=== PATIENT | female | born 1965 | race African-American/Black ===

== ENCOUNTER 2018-02-19 14:47 | Emergency (ER) | payer SELFPAY ==
[2018-02-19] MEDS ORDERED: Clindamycin 150 MG CAP ONE (15:59)
[2018-02-19] MEDS ORDERED: HYDROcodone/Acetaminophen 5/325 mg Tablet ONE (15:59)
[2018-02-19] MEDS ORDERED: Dexamethasone 4 mg/ml Vial ONE (16:00)
[2018-02-19 16:07] LABS: #Basophils 0.1 thou/uL (0.0-0.2); #Eosinphils 0.2 thou/uL (0.0-0.7); #Lymphocytes 2.4 thou/uL (1.20-3.40); #Monocytes 0.6 thou/uL (0.11-0.59); #Neutrophils 6.3 thou/uL (1.40-6.50); %Basophils 0.9 % (0.0-1.0); %Eosinophils 1.9 % (0.0-10.0); %Lymphocytes 25.1 % (21.0-51.0); %Monocytes 5.8 % (0.0-10.0); %Neutrophils 66.3 % (42.0-75.0); Hemoglobin 12.9 g/dL (12.0-16.0); Mean Corpuscular HGB CONC 33.1 g/dL (32.0-36.0); Mean Corpuscular Hemoglobin 31.5 pg (27.0-31.0); Mean Corpuscular Volume 95.3 fL (78.0-98.0); Mean Platelet Volume 7.9 fL (7.4-10.4); Platelet Count 209 thou/uL (130-400); RBC Distribution Width 13.1 % (11.5-14.5); White Blood Cell (WBC) Count 9.4 thou/uL (4.8-10.8)
== END 2018-02-19 16:35 | disposition home or self-care (01) ==
LOC: ERS 14:47
DX: K04.7 Periapical abscess without sinus (principal); I10 Essential (primary) hypertension; F17.210 Nicotine dependence, cigarettes, uncomplicated
CPT/HCPCS: 36415; 85025; 99283; J1100

== ENCOUNTER 2018-02-21 13:28 | Emergency (ER) | payer SELFPAY ==
[2018-02-21 14:21] LABS: #Basophils 0.1 thou/uL (0.0-0.2); #Eosinphils 0.2 thou/uL (0.0-0.7); #Lymphocytes 2.8 thou/uL (1.20-3.40); #Monocytes 0.5 thou/uL (0.11-0.59); %Basophils 1.2 % (0.0-1.0); %Eosinophils 1.6 % (0.0-10.0); %Lymphocytes 29.3 % (21.0-51.0); %Monocytes 5.3 % (0.0-10.0); %Neutrophils 62.5 % (42.0-75.0); Hemoglobin 15.3 g/dL (12.0-16.0); Mean Corpuscular HGB CONC 33.9 g/dL (32.0-36.0); Mean Corpuscular Volume 94.4 fL (78.0-98.0); Mean Platelet Volume 8.4 fL (7.4-10.4); Platelet Count 292 thou/uL (130-400); RBC Distribution Width 13.5 % (11.5-14.5); Red Blood Cell (RBC) Count 4.77 mill/uL (4.20-5.40); White Blood Cell (WBC) Count 9.6 thou/uL (4.8-10.8)
[2018-02-21] MEDS ORDERED: cefTRIAXone\\ROCEPHIN 1 GM VIAL ONE (14:27)
[2018-02-21] MEDS ORDERED: Ondansetron HCl/PF 4 MG/2 ML Vial ONE (14:27)
[2018-02-21] MEDS ORDERED: Dexamethasone 4 mg/ml Vial ONE (14:27)
[2018-02-21 14:34] LABS: BHCG - Serum Negative (NEGATIVE); Pregs Control Background? CLEAR/WHITE (CLR/WHITE); Pregs Control Bar Appear? YES (CONTROL BAR)
[2018-02-21] MEDS ORDERED: cloNIDine 0.1 MG TAB ONE (14:37)
[2018-02-21 14:47] LABS: CKMB 0.6 ng/mL (0-6.6); Troponin I Less than 0.010 ng/mL (< 0.028)
--- NOTE | 2018-02-21 14:58 | RAD ---
CHEST ONE VIEW: HISTORY: Chest pain. Dyspnea. COMPARISON: 06/24/2011 FINDINGS: The cardiac silhouette is magnified by projection. The pulmonary vasculature is at the upper limits of normal. The mediastinum is midline. No lobar consolidation or evidence of pneumothorax. IMPRESSION: No active cardiopulmonary abnormalities demonstrated. POS: [facility]
--- NOTE | 2018-02-21 15:08 | CT ---
POST CONTRAST SOFT TISSUE NECK CT: HISTORY: Evaluate for soft tissue neck abscess. COMPARISON: None. TECHNIQUE: Post contrast neck CT is performed in the axial plane. Reformatted images are submitted for interpre tation. FINDINGS: The visualized brain parenchyma is unremarkable. Bilateral ocular lenses are appropriately located. Both globes are intact. Retrobulbar fat is preserved. Symmetric attenuation of the optic nerves and ocular rectus muscles. Adequate aeration of the paranasal sinuses and mastoid air cells, with the exception of minimal mucos al disease involving the right maxillary sinus. There is evidence of periodontal disease involving t he molar teeth of the left and right maxilla. No obvious masses in the anterior oral cavity. Evaluation is limited by dental amalgam artifact. Mi dline fatty raphe of the tongue is preserved. In the right tonsillar pillar, there is a previously enhancing, centrally hypodense lesion, measuring 1.9 x 2.2 cm. There is mild mucosal enhancement and mild effacement of the aerodigestive tract at t his level. There is also enhancement involving the left tonsillar pillar, without associated obvious abscess. There is thickening at the epiglottis. Pre-epiglottic fat is still preserved. The suprag lottic, glottic, and subglottic larynx are unremarkable. Symmetric attenuation of the parotid and submandibular glands. Symmetric attenuation of the sternocleidomastoid muscles. Scattered soft tissue neck lymph nodes. There is a conglomeration of enlarged right level II lymph n odes, measuring 1.7 x 1.1 cm. Enlarged left level II lymph node, measuring 1.4 x 0.8 cm. The lung apices are unremarkable. There is an incompletely evaluated hypodensity of the anterior med iastinum, measuring 3.1 x 2.5 cm, with an attenuation coefficient of 33 Hounsfield units. Cervical spine vertebral body heights are maintained. No fractures. IMPRESSION: 1. Peritonsillar abscess involving the right tonsillar pillar/right palatine tonsil. 2. Enlarged bilateral level II lymph nodes, likely reactive. 3. Incompletely evaluated hypodensity in the anterior mediastinum. The results of the study were discussed with Dr. Sams on 02/21/2018 at 2:44 p.m. CODE CR POS: [facility]
== END 2018-02-21 15:14 | disposition home or self-care (01) ==
LOC: ERS 13:28
DX: J36 Peritonsillar abscess (principal); J98.59 Other diseases of mediastinum, not elsewhere classified; F41.9 Anxiety disorder, unspecified; I10 Essential (primary) hypertension; F17.210 Nicotine dependence, cigarettes, uncomplicated; Z79.899 Other long term (current) drug therapy
CPT/HCPCS: 70491; 71045; 82553; 84484; 84703; 85025; 93005; 96365; 96375; J0696; J1100; J2405

== ENCOUNTER 2018-05-01 11:27 | Emergency (ER) | payer SELFPAY ==
[2018-05-01] MEDS ORDERED: Ibuprofen 800 MG TAB ONE (12:20)
--- NOTE | 2018-05-01 15:29 | RAD ---
PA AND LATERAL VIEWS CHEST: HISTORY: Cough and congestion. FINDINGS: The heart size is normal. The lungs are well expanded without focal areas of consolidation, pneumoth oraces or pleural effusions. No acute off abnormalities are seen. IMPRESSION: No radiographic evidence of acute cardiopulmonary process. POS: [facility]
== END 2018-05-01 14:10 | disposition home or self-care (01) ==
LOC: ERS 11:27
DX: J06.9 Acute upper respiratory infection, unspecified (principal); I10 Essential (primary) hypertension; F41.9 Anxiety disorder, unspecified; F17.210 Nicotine dependence, cigarettes, uncomplicated; Z79.899 Other long term (current) drug therapy
CPT/HCPCS: 71046

== ENCOUNTER 2018-05-28 13:10 | Emergency (ER) | payer SELFPAY ==
[2018-05-28] MEDS ORDERED: Metoclopramide HCl 10 MG/2 ML VIAL ONE (14:05)
[2018-05-28] MEDS ORDERED: Acetaminophen 500 MG TAB ONE (14:05)
[2018-05-28 15:00] LABS: #Basophils 0.1 thou/uL (0.0-0.2); #Eosinphils 0.1 thou/uL (0.0-0.7); #Lymphocytes 1.4 thou/uL (1.20-3.40); #Monocytes 0.6 thou/uL (0.11-0.59); #Neutrophils 4.7 thou/uL (1.40-6.50); %Eosinophils 1.2 % (0.0-10.0); %Lymphocytes 20.7 % (21.0-51.0); %Monocytes 8.2 % (0.0-10.0); %Neutrophils 68.9 % (42.0-75.0); Hemoglobin 15.2 g/dL (12.0-16.0); Mean Corpuscular HGB CONC 33.2 g/dL (32.0-36.0); Mean Corpuscular Hemoglobin 31.1 pg (27.0-31.0); Mean Corpuscular Volume 93.7 fL (78.0-98.0); Mean Platelet Volume 7.5 fL (7.4-10.4); Platelet Count 252 thou/uL (130-400); RBC Distribution Width 13.3 % (11.5-14.5); Red Blood Cell (RBC) Count 4.88 mill/uL (4.20-5.40); White Blood Cell (WBC) Count 6.8 thou/uL (4.8-10.8)
[2018-05-28 15:21] LABS: ALT (SGPT) 25 U/L (8-55); AST (SGOT) 29 U/L (5-34); Albumin 3.9 g/dL (3.5-5.0); Alkaline Phosphatase 103 U/L (40-150); Anion Gap 14 mmol/L (10-20); BUN (Urea Nitrogen) 12 mg/dL (7.0-18.7); Bilirubin, Total 0.2 mg/dL (0.2-1.2); Calc. Creatinine Clearance 0 mL/min (70-130); Calcium 9.5 mg/dL (7.8-10.44); Carbon Dioxide 19 mmol/L (22-29); Chloride 103 mmol/L (98-107); Estimated GFR-MDRD 49; Globulin 4.1 g/dL (2.4-3.5); Glucose 128 mg/dL (70-105); Potassium 4.3 mmol/L (3.5-5.1); Sodium 132 mmol/L (136-145)
[2018-05-28] MEDS ORDERED: Ketorolac Tromethamine 30 MG/ML VIAL ONE (15:21)
--- NOTE | 2018-05-28 15:21 | CT ---
CT BRAIN NONCONTRAST: HISTORY: A 52-year-old female with headache. FINDINGS: There is no midline shift or any other mass effect. There is no evidence of acute intracranial hemor rhage, large cortical infarct, obstructive hydrocephalus, or extraaxial fluid collection. The calvar ium is intact. IMPRESSION: No acute intracranial findings. jn [] POS: [facility]
== END 2018-05-28 15:56 | disposition home or self-care (01) ==
LOC: ERS 13:10
DX: J01.90 Acute sinusitis, unspecified (principal); F41.9 Anxiety disorder, unspecified; F17.210 Nicotine dependence, cigarettes, uncomplicated; I10 Essential (primary) hypertension; Z79.899 Other long term (current) drug therapy
CPT/HCPCS: 36416; 70450; 80053; 85025; 96365; 96366; 96375; J1885; J2765

== ENCOUNTER 2018-05-30 11:28 | Emergency (ER) | payer SELFPAY ==
[2018-05-30] MEDS ORDERED: Acetaminophen 500 MG TAB ONE (12:00)
[2018-05-30] MEDS ORDERED: cefTRIAXone\\ROCEPHIN 2 GM VIAL ONE ×2 (12:00→14:37)
[2018-05-30] MEDS ORDERED: cefTRIAXone\\ROCEPHIN 2 GM in Sodium Chloride 0.9% 100 ML IVPB SCH (12:45)
[2018-05-30 12:53] LABS: ALT (SGPT) 69 U/L (8-55); AST (SGOT) 71 U/L (5-34); Albumin 4.1 g/dL (3.5-5.0); Alkaline Phosphatase 117 U/L (40-150); Anion Gap 12 mmol/L (10-20); BUN (Urea Nitrogen) 10 mg/dL (7.0-18.7); Bilirubin, Total 0.4 mg/dL (0.2-1.2); Calc. Creatinine Clearance 0 mL/min (70-130); Calcium 9.6 mg/dL (7.8-10.44); Carbon Dioxide 24 mmol/L (22-29); Chloride 98 mmol/L (98-107); Estimated GFR-MDRD 53; Globulin 4.1 g/dL (2.4-3.5); Glucose 131 mg/dL (70-105); Potassium 3.7 mmol/L (3.5-5.1); Protein, Total 8.2 g/dL (6.0-8.3); Sodium 130 mmol/L (136-145)
[2018-05-30 13:10] LABS: #Basophils 0.1 thou/uL (0.0-0.2); #Lymphocytes 1.2 thou/uL (1.20-3.40); #Monocytes 0.5 thou/uL (0.11-0.59); #Neutrophils 4.9 thou/uL (1.40-6.50); %Basophils 0.9 % (0.0-1.0); %Eosinophils 0.2 % (0.0-10.0); %Lymphocytes 17.9 % (21.0-51.0); %Monocytes 6.9 % (0.0-10.0); Hemoglobin 14.7 g/dL (12.0-16.0); Mean Corpuscular HGB CONC 33.4 g/dL (32.0-36.0); Mean Corpuscular Hemoglobin 30.2 pg (27.0-31.0); Mean Corpuscular Volume 90.4 fL (78.0-98.0); Platelet Count 217 thou/uL (130-400); RBC Distribution Width 13.4 % (11.5-14.5); Red Blood Cell (RBC) Count 4.87 mill/uL (4.20-5.40); White Blood Cell (WBC) Count 6.7 thou/uL (4.8-10.8)
[2018-05-30] MEDS ORDERED: Lidocaine 1% (PF) 30 ML VIAL ONE (13:40)
[2018-05-30 14:48] LABS: CSF Source CSF; Clarity Clear (Clear); RBC Count - Manual 1 /cumm (None Seen); Tube # 4; WBC/NonHematics Count - Manual 1 /cumm (0-5)
[2018-05-30 14:53] LABS: Color Of CSF Supernatant COLORLESS (Colorless); Unspun CSF Color COLORLESS (Colorless)
[2018-05-30 14:54] LABS: Tube # 2
[2018-05-30 15:08] LABS: CSF, Glucose 74 mg/dl (40-70); CSF, Protein 31 mg/dL (15-40)
== END 2018-05-30 15:21 | disposition home or self-care (01) ==
LOC: ERS 11:28
DX: B34.9 Viral infection, unspecified (principal); I10 Essential (primary) hypertension; F41.9 Anxiety disorder, unspecified; F17.210 Nicotine dependence, cigarettes, uncomplicated; Z79.899 Other long term (current) drug therapy
CPT/HCPCS: 62270; 80053; 82945; 83605; 84157; 85025; 87070; 87205; 87804; 89051; 96361; 96365; J0696; J2001

== ENCOUNTER 2018-06-04 08:57 | Inpatient (IN) | payer SELFPAY ==
[2018-06-04 09:43] LABS: #Basophils 0.1 thou/uL (0.0-0.2); #Eosinphils 0.1 thou/uL (0.0-0.7); #Lymphocytes 1.4 thou/uL (1.20-3.40); #Monocytes 0.5 thou/uL (0.11-0.59); #Neutrophils 4.4 thou/uL (1.40-6.50); %Basophils 0.8 % (0.0-1.0); %Eosinophils 1.9 % (0.0-10.0); %Lymphocytes 21.2 % (21.0-51.0); %Monocytes 7.2 % (0.0-10.0); %Neutrophils 68.9 % (42.0-75.0); Hemoglobin 14.4 g/dL (12.0-16.0); Mean Corpuscular HGB CONC 33.3 g/dL (32.0-36.0); Mean Corpuscular Hemoglobin 30.3 pg (27.0-31.0); Mean Platelet Volume 8.3 fL (7.4-10.4); Platelet Count 228 thou/uL (130-400); RBC Distribution Width 13.6 % (11.5-14.5); Red Blood Cell (RBC) Count 4.73 mill/uL (4.20-5.40); White Blood Cell (WBC) Count 6.4 thou/uL (4.8-10.8)
[2018-06-04 10:05] LABS: ALT (SGPT) 270 U/L (8-55); AST (SGOT) 193 U/L (5-34); Albumin 3.7 g/dL (3.5-5.0); Alkaline Phosphatase 279 U/L (40-150); Anion Gap 16 mmol/L (10-20); BUN (Urea Nitrogen) 13 mg/dL (7.0-18.7); Calc. Creatinine Clearance 0 mL/min (70-130); Calcium 9.5 mg/dL (7.8-10.44); Carbon Dioxide 25 mmol/L (22-29); Chloride 94 mmol/L (98-107); Estimated GFR-MDRD 52; Globulin 4.2 g/dL (2.4-3.5); Glucose 134 mg/dL (70-105); Lipase 9 U/L (8-78); Potassium 3.6 mmol/L (3.5-5.1); Protein, Total 7.9 g/dL (6.0-8.3); Sodium 131 mmol/L (136-145)
[2018-06-04 10:48] LABS: Bilirubin Moderate (Negative); Blood, Urine Negative (Negative); Clarity CLOUDY (Clear); Glucose, Urine (Dipstick) Negative (Negative); Leukocyte Small (Negative); Nitrite Positive (Negative); Protein, Urine (Dipstick) 100 mg/dL (Neg-Trace); Specific Gravity, Urine 1.025 (1.002-1.036); pH, Urine 5.5 (5.0-9.0)
[2018-06-04 10:51] LABS: Bacteria/HPF None Seen HPF (None Seen)
[2018-06-04 10:52] LABS: Pathc Cast-AUWi Flag 3.19 (0-2.49)
[2018-06-04 10:53] LABS: Hyaline Casts/LPF 4-6 HYALINE CAST LPF (0-3 Hyaline); Manual Microscopic Reviewed? No Path Casts Seen; Renal Epithelial None Seen HPF (0-3); Transitional Epithelial NONE SEEN HPF (0-3)
--- NOTE | 2018-06-04 11:00 | ULT ---
RIGHT UPPER QUADRANT ULTRASOUND: Date: 06/04/18 HISTORY: Right upper quadrant pain. FINDINGS: The liver, gallbladder, right kidney, and visualized portions of the pancreas are normal. No free flu id is seen in Morison's pouch. Common duct measures 3.0 mm in diameter. IMPRESSION: No significant abnormalities are identified. POS: [facility]
[2018-06-04] MEDS ORDERED: Ondansetron PF 4 MG/2 ML Vial ONE ×2 (11:45→11:46)
[2018-06-04] MEDS ORDERED: Sodium Chloride 0.65% Nasal 44 ML BOT EA NARE PRN (14:00)
[2018-06-04] MEDS ORDERED: Bisacodyl 5 MG TAB PO PRN (14:00)
[2018-06-04] MEDS ORDERED: Calcium Carbonate 500 MG ChewTAB PO PRN (14:00)
[2018-06-04] MEDS ORDERED: Ondansetron PF 4 MG/2 ML Vial IVP PRN (14:00)
[2018-06-04] MEDS ORDERED: Ondansetron ODT 4 MG TAB PO PRN (14:00)
[2018-06-04] MEDS ORDERED: Loperamide HCl 2 MG CAP PO PRN (14:00)
[2018-06-04] MEDS ORDERED: Artificial Tear Sol 15 ML BOT EA EYE PRN (14:00)
[2018-06-04] MEDS ORDERED: Bisacodyl 10 MG SUPP PR PRN (14:00)
[2018-06-04] MEDS ORDERED: Senokot S 8.6-50 MG TAB PO PRN (14:00)
[2018-06-04] MEDS ORDERED: Eucerin (Mineral Oil/Petrolatum,White) 30 gm Jar TOP PRN (14:00)
[2018-06-04] MEDS ORDERED: hydrALAZINE 20 MG/ML VIAL SLOW IVP PRN (14:00)
[2018-06-04] MEDS ORDERED: Cepastat Lozenges 1 LOZ PO PRN (14:00)
[2018-06-04] MEDS ORDERED: Diabetic Tussin 200 MG/10 ML UDCUP PO PRN (14:00)
[2018-06-04 14:04] VITALS: BMI 29.9
--- NOTE | 2018-06-04 14:16 | HP ---
PRIMARY CARE PHYSICIAN: [facility]. REASON FOR ADMISSION: UTI and abnormal LFT. HISTORY OF PRESENT ILLNESS: A 52-year-old female with past medical history of hypertension, who presented to emergency room with multiple complaints for last two weeks. The patient is experiencing poor appetite and insomnia. She was also feeling fatigued, tiredness. For last one week, she was experiencing intermittent dysuria. She also noticed hematuria. She was having subjective fever at home. She denies any cough. She denies any chest pain or palpitation. She reports insomnia. The patient was also feeling off-balance. She was also feeling intermittently disoriented. She was overall not feeling good, and that is why she came to emergency room for evaluation. In the emergency room today, abdominal ultrasound was done for her abnormal LFT, which was unremarkable. Routine blood test showed hyponatremia, mild dehydration, and abnormal LFT. Her urinalysis is suggestive of UTI. In the emergency room, the patient is getting CT chest, abdomen, and pelvis. The patient is being admitted for further evaluation and treatment. PAST MEDICAL HISTORY: Hypertension, history of tobacco abuse, and history of alcohol abuse. PAST SURGICAL HISTORY: Ovarian cyst removed in 1996, and tubal ligation. PAST PSYCHIATRIC HISTORY: Anxiety and depression. SOCIAL HISTORY: The patient has previous history of drug abuse. She reports that she quit everything for last several months. She also recently stopped smoking as well as abusing alcohol. Previously, she abused marijuana as well as cocaine. FAMILY HISTORY: No family history of coronary artery disease, stroke, or cancer. REVIEW OF SYSTEMS: CONSTITUTIONAL: Negative for weight loss or gain, ability to conduct usual activities. SKIN: Negative for rash, itching. EYES: Negative for double vision, pain. ENT/MOUTH: Negative for nose bleeding, neck stiffness, pain, tenderness. CARDIOVASCULAR: Negative for palpitations, dyspnea on exertion, orthopnea. RESPIRATORY: Negative for shortness of breath, wheezing, cough, hemoptysis, fever or night sweats. GASTROINTESTINAL: Negative for poor appetite, abdominal pain, heartburn, nausea, vomiting, constipation, or diarrhea. GENITOURINARY: Negative for urgency, frequency, dysuria, nocturia. MUSCULOSKELETAL: Negative for pain, swelling. NEUROLOGIC/PSYCHIATRIC: Negative for anxiety, depression. ALLERGY/IMMUNOLOGIC: Negative for skin rash, bleeding tendency. Please see my HPI for pertinent positives and negatives. All other review of systems reviewed and negative except as mentioned in HPI. ALLERGIES: AUGMENTIN, BENADRYL, PSEUDOEPHEDRINE, AND TRAMADOL. CURRENT HOME MEDICATIONS: 1. Atenolol 50 mg daily. 2. Clonidine 0.2 mg at bedtime. 3. Hydrochlorothiazide 12.5 mg p.o. daily. EMERGENCY ROOM COURSE: The patient is given IV fluid and Zofran. FAMILY HISTORY: No strong family history of premature coronary artery disease, stroke, or cancer. PHYSICAL EXAMINATION: VITAL SIGNS: Currently, blood pressure 100/67, pulse 69, respiratory rate 18, temperature 98.8, and saturation 99% on room air. Weight 72.1 kg. GENERAL: The patient is currently alert and awake. No obvious acute distress. HEENT: Head; normocephalic and atraumatic. Eyes; pupils are round and reactive to light. Extraocular muscle intact. ENT; oropharynx within normal limits. Moist mucous membranes. No oral lesion. No pharyngeal erythema. No exudate. NECK: Supple. No JVD. No thyromegaly. No carotid bruit. LUNGS: Clear to auscultation without any rhonchi or rales. CARDIAC: S1 and S2, regular. No murmur elicited. No gallop. No rub. ABDOMEN: The patient does have lower abdominal suprapubic discomfort. Mild CVA tenderness noted. No distention. No peritoneal sign. No guarding. No rigidity. No Williamson sign. No obvious organomegaly noted. EXTREMITIES: No edema. Good distal pulsation. No calf tenderness. SKIN: No skin rash. HEMATOLOGICAL SYSTEM: No lymphadenopathy. PSYCHIATRIC: Normal affect. NEUROLOGIC: Nonfocal examination. SIGNIFICANT LABORATORY DATA: EKG showing sinus rhythm, within normal limit. Abdomen ultrasound, no acute process. CBC; WBC 6.4, hemoglobin 14.4, and platelet 228. BMP; sodium 131, potassium 3.6, chloride 94, carbon dioxide 25, BUN 13, creatinine 1.30, glucose 134, calcium 9.5. LFT; AST 193, ALT 270, alkaline phosphatase 279, albumin 3.7, lipase 9. Urinalysis suggestive of urinary tract infection. ASSESSMENT: 1. Urinary tract infection. 2. Abnormal liver function tests. 3. Dehydration. 4. Hyponatremia and hypochloremia. 5. History of hypertension. 6. Ex-smoker and ex-alcohol abuse. 7. Anxiety and depression. 8. Generalized weakness. PLAN: 1. Admission to medical floor. Send urine culture. Start IV fluid with NS at 100 mL/hour. Resume selected home medication. Symptomatic treatment. Repeat labs tomorrow. Check hepatitis profile. The patient is getting CT chest, abdomen, and pelvis in the emergency room to rule out any occult malignancy. 2. Deep venous thrombosis prophylaxis. Lovenox 40 mg subcu daily. 3. Gastrointestinal prophylaxis. Pepcid 20 mg p.o. b.i.d. CODE STATUS: The patient is full code. The patient does not have any surrogate decision maker. DISPOSITION PLAN: Based on clinical course. Healthy lifestyle measure discussed with the patient. The patient is given counseling to avoid smoking and alcohol abuse. Job ID: [id number]
[2018-06-04] MEDS: cefTRIAXone\\ROCEPHIN 1 GM in Sodium Chloride 0.9% 100 ML IVPB SCH (14:50)
[2018-06-04] MEDS: Sodium Chloride 0.9% 1,000 ML IV SCH ×2 (14:51→20:27)
--- NOTE | 2018-06-04 17:16 | CT ---
CT CHEST AND ABDOMEN AND PELVIS PERFORMED WITH INTRAVENOUS CONTRAST ENHANCEMENT: HISTORY: Patient with loss of appetite. It was stated that she has been told that she has a large mass in her chest and has a cough and difficulty breathing. COMPARISON: Recent chest x-ray from 05/01/2018. FINDINGS: CHEST: The lungs are clear of any infiltrative process. There is some minimal linear atelectasis or scar in the lung bases. No pulmonary nodule or pleural effusions. There is no significant hilar ad enopathy. There is an anterior mediastinal mass, which is well circumscribed and of fluid density, m ost likely representing a thymic cyst. The thoracic aorta is normal in caliber. The thyroid gland i s normal in appearance. No significant axillary adenopathy. ABDOMEN: The liver and spleen show no focal abnormalities. The liver measures approximately 18.6 cm in length. The pancreas and gallbladder regions are normal. The right and left adrenal glands and the right and left kidneys are normal in size. There is no sig nificant periaortic or mesenteric adenopathy. Some mild atherosclerotic changes of the aorta are not ed. PELVIS: The appendix is normal. There is no significant adenopathy, mass, or free fluid. Review of the osseous structures show no lytic or blastic bony change. IMPRESSION: 1. No acute findings of the chest, abdomen, or pelvis. 2. Cystic appearing lesion in the anterior mediastinum. 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 I do no t see any solid component. It still would probably be advisable to obtain a 3 to 6 month follow-up C T, to assess for stability. POS: [facility]
[2018-06-04] MEDS: Acetaminophen 325 MG TAB PO PRN (17:27)
[2018-06-05 06:49] LABS: #Basophils 0.1 thou/uL (0.0-0.2); #Eosinphils 0.1 thou/uL (0.0-0.7); #Lymphocytes 1.3 thou/uL (1.20-3.40); #Monocytes 0.6 thou/uL (0.11-0.59); #Neutrophils 3.8 thou/uL (1.40-6.50); %Basophils 0.9 % (0.0-1.0); %Eosinophils 1.8 % (0.0-10.0); %Monocytes 10.4 % (0.0-10.0); %Neutrophils 64.8 % (42.0-75.0); Hemoglobin 12.3 g/dL (12.0-16.0); Mean Corpuscular HGB CONC 33.2 g/dL (32.0-36.0); Mean Corpuscular Hemoglobin 30.2 pg (27.0-31.0); Mean Corpuscular Volume 90.9 fL (78.0-98.0); Mean Platelet Volume 8.1 fL (7.4-10.4); Platelet Count 233 thou/uL (130-400); RBC Distribution Width 13.5 % (11.5-14.5); Red Blood Cell (RBC) Count 4.09 mill/uL (4.20-5.40); White Blood Cell (WBC) Count 5.9 thou/uL (4.8-10.8)
[2018-06-05 07:10] LABS: ALT (SGPT) 230 U/L (8-55); AST (SGOT) 172 U/L (5-34); Albumin 3.1 g/dL (3.5-5.0); Alkaline Phosphatase 277 U/L (40-150); Anion Gap 11 mmol/L (10-20); BUN (Urea Nitrogen) 10 mg/dL (7.0-18.7); Bilirubin, Total 0.7 mg/dL (0.2-1.2); Calc. Creatinine Clearance 73 mL/min (70-130); Calcium 8.7 mg/dL (7.8-10.44); Carbon Dioxide 25 mmol/L (22-29); Chloride 101 mmol/L (98-107); Estimated GFR-MDRD 67; Globulin 3.6 g/dL (2.4-3.5); Glucose 131 mg/dL (70-105); Potassium 3.5 mmol/L (3.5-5.1); Protein, Total 6.7 g/dL (6.0-8.3); Sodium 133 mmol/L (136-145)
[2018-06-05 07:31] LABS: HBCM Index 0.05 S/CO (0-0.79); HBSAg Index 0.23 S/CO (0-0.99); Hep A IgM AB Non-Reactive (NonReactive); Hep A IgM S/CO 0.24 S/CO (0-0.79); Hep B Surf Ag Non-Reactive S/CO (NonReactive); Hep C IgG Ab Non-Reactive (NonReactive); Hep C Index 0.07 S/CO (0-0.79); Hepatitis B Core IgM Abs Non-Reactive (NonReactive); Thyroid Stimulating Hormone 1.4925 uIU/mL (0.35-4.94)
[2018-06-05] MEDS: Enoxaparin Sodium 40 MG/0.4 ML SYRINGE SC SCH (09:19)
[2018-06-05] MEDS: Famotidine 20 MG TAB PO SCH (09:19)
[2018-06-05] MEDS: Saccharomyces boulardii 250 MG CAP PO SCH (09:19)
[2018-06-05] MEDS: Sodium Chloride 0.9% 1,000 ML IV SCH ×2 (09:19→18:03)
--- NOTE | 2018-06-05 10:00 | PDOC.PN ---
- Subjective Encounter Start Date: 06/05/18 Encounter Start Time: 08:10 -: old records requested/rev Patient seen and examined. No new complaints. No overnight events had low grade fever last night, has poor apatite - Objective Resuscitation Status - Order Detail: 06/04/18 13:07 Resuscitation Status Routine Resuscitation Status: FULL: Full Resuscitation MAR Reviewed: Yes Vital Signs & Weight: Vital Signs (12 hours) Temp Pulse Resp BP BP Pulse Ox 06/05/18 07:28 98.6 F 71 16 117/74 97 06/05/18 05:18 98.3 F 82 18 122/77 94 L 06/05/18 00:00 100.5 F H 80 16 126/77 98 Weight Weight 158 lb 11.725 oz I&O: 06/04/18 06/05/18 06/06/18 06:59 06:59 06:59 Intake Total 360 Balance 360 Result Diagrams: 06/05/18 06:36 06/05/18 06:36 Radiology Reviewed by me: Yes (CT chest abdomen and pelvis noted) Phys Exam - Physical Examination Constitutional: NAD HEENT: PERRLA, moist MMs, sclera anicteric Neck: no JVD, supple Respiratory: no wheezing, no rales, no rhonchi Cardiovascular: RRR, no significant murmur, no rub Gastrointestinal: soft, non-tender, no distention, positive bowel sounds Musculoskeletal: no edema, pulses present Neurological: non-focal, normal sensation, moves all 4 limbs Lymphatic: no nodes Psychiatric: normal affect, A&O x 3 Skin: no rash, normal turgor Dx/Plan (1) UTI (urinary tract infection) Status: Acute (2) Abnormal LFTs Code(s): R94.5 - ABNORMAL RESULTS OF LIVER FUNCTION STUDIES Status: Acute (3) Dehydration Code(s): E86.0 - DEHYDRATION Status: Acute (4) Hyponatremia Code(s): E87.1 - HYPO-OSMOLALITY AND HYPONATREMIA Status: Acute (5) Hypertension Code(s): I10 - ESSENTIAL (PRIMARY) HYPERTENSION Status: Chronic (6) Obesity (BMI 30.0-34.9) Code(s): E66.9 - OBESITY, UNSPECIFIED Status: Chronic (7) Thymus, 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 Review of Systems - Review of Systems Constitutional: fever, weakness. negative: chills, sweats, malaise, other ENT: negative: Ear Pain, Ear Discharge, Nose Pain, Nose Discharge, Nose Congestion, Mouth Pain, Mouth Swelling, Throat Pain, Throat Swelling, Other Respiratory: negative: Cough, Dry, Shortness of Breath, Hemoptysis, SOB with Excertion, Pleuritic Pain, Sputum, Wheezing Cardiovascular: negative: chest pain, palpitations, orthopnea, paroxysmal nocturnal dyspnea, edema, light headedness, other Gastrointestinal: negative: Nausea, Vomiting, Abdominal Pain, Diarrhea, Constipation, Melena, Hematochezia, Other Genitourinary: negative: Dysuria, Frequency, Incontinence, Hematuria, Retention , Other Musculoskeletal: negative: Neck Pain, Shoulder Pain, Arm Pain, Back Pain, Hand Pain, Leg Pain, Foot Pain, Other Skin: negative: Rash, Lesions, Yuri, Bruising, Other - Medications/Allergies Allergies/Adverse Reactions: Allergies Allergy/AdvReac Type Severity Reaction Status Date / Time diphenhydramine HCl Allergy Verified 05/29/14 14:59 [From Benadryl] pseudoephedrine HCl Allergy Verified 05/29/14 14:59 [From Sudafed] tramadol Allergy Verified 06/04/18 14:20 Medications: Current Medications Acetaminophen (Tylenol) 650 mg PO Q4H PRN PRN Reason: Headache/Fever/Mild Pain (1-3) Last Admin: 06/04/18 17:27 Dose: 650 mg Hydrocodone Bitart/Acetaminophen ([place] 5/325) 1 tab PO Q4H PRN PRN Reason: Moderate Pain (4-6) Artificial Tears (Tears Renewed 15ml Bottle) 2 drop EA EYE PRN PRN PRN Reason: Dry Eyes Bisacodyl (Dulcolax) 10 mg [place] DAILYPRN PRN PRN Reason: Constipation Bisacodyl (Dulcolax) 10 mg PO DAILYPRN PRN PRN Reason: Constipation Calcium Carbonate (Tums) 1,000 mg PO Q4H PRN PRN Reason: Heartburn or Indigestion Enoxaparin Sodium (Lovenox) 40 mg SC 0900 [facility] Last Admin: 06/05/18 09:19 Dose: 40 mg Famotidine (Pepcid) 20 mg PO DAILY [facility] Last Admin: 06/05/18 09:19 Dose: 20 mg Guaifenesin (Robitussin Sf) 200 mg PO Q4H PRN PRN Reason: Cough Hydralazine HCl (Apresoline) 10 mg SLOW IVP Q4H PRN PRN Reason: SBP > 180 and HR < 70 Ceftriaxone Sodium 1 gm/ (Sodium Chloride) 100 mls @ 200 mls/hr IVPB Q24HR [facility] Last Admin: 06/04/18 14:50 Dose: 100 mls Sodium Chloride (Normal Saline 0.9%) 1,000 mls @ 100 mls/hr IV .Q10H [facility] Last Admin: 06/05/18 09:19 Dose: 1,000 mls Loperamide HCl (Imodium) 2 mg PO PRN PRN PRN Reason: Diarrhea/Loose Stools Mineral Oil/White Petrolatum (Eucerin Cream) 0 gm TOP BIDPRN PRN PRN Reason: Dry Skin Ondansetron HCl (Zofran Odt) 4 mg PO Q6H PRN PRN Reason: Nausea/Vomiting Ondansetron HCl (Zofran) 4 mg IVP Q6H PRN PRN Reason: Nausea/Vomiting Saccharomyces Boulardii (Florastor) 250 mg PO DAILY [facility] Last Admin: 06/05/18 09:19 Dose: 250 mg Senna/Docusate Sodium (Senokot S) 2 tab PO BID PRN PRN Reason: Constipation Sodium Chloride ([place] Nasal [place] 0.65%) 0 ml EA NARE QIDPRN PRN PRN Reason: Nasal Congestion Throat Lozenges (Cepastat Lozenges) 1 davion PO Q2H PRN PRN Reason: Sore Throat Zolpidem Tartrate (Ambien) 5 mg PO HSPRN PRN PRN Reason: Insomnia
[2018-06-05] MEDS: cefTRIAXone\\ROCEPHIN 1 GM in Sodium Chloride 0.9% 100 ML IVPB SCH (14:15)
[2018-06-05] MEDS: Acetaminophen 325 MG TAB PO PRN (18:00)
[2018-06-06] MEDS: Acetaminophen 325 MG TAB PO PRN ×3 (03:12→21:14)
[2018-06-06] MEDS: Sodium Chloride 0.9% 1,000 ML IV SCH (03:14)
[2018-06-06 07:45] LABS: ALT (SGPT) 223 U/L (8-55); AST (SGOT) 154 U/L (5-34); Albumin 3.1 g/dL (3.5-5.0); Alkaline Phosphatase 275 U/L (40-150); Anion Gap 12 mmol/L (10-20); BUN (Urea Nitrogen) 5 mg/dL (7.0-18.7); Bilirubin, Total 0.6 mg/dL (0.2-1.2); Calc. Creatinine Clearance 88 mL/min (70-130); Calcium 8.7 mg/dL (7.8-10.44); Carbon Dioxide 24 mmol/L (22-29); Chloride 104 mmol/L (98-107); Estimated GFR-MDRD 83; Globulin 3.3 g/dL (2.4-3.5); Glucose 115 mg/dL (70-105); Potassium 3.7 mmol/L (3.5-5.1); Protein, Total 6.4 g/dL (6.0-8.3); Sodium 136 mmol/L (136-145)
[2018-06-06 08:16] LABS: Band 7 % (5-11); Eosinophils 3 % (0-10); Hemoglobin 11.7 g/dL (12.0-16.0); Lymphocytes 31 % (21-51); MDiff Complete? YES; Mean Corpuscular HGB CONC 33.2 g/dL (32.0-36.0); Mean Corpuscular Hemoglobin 30.6 pg (27.0-31.0); Mean Corpuscular Volume 92.2 fL (78.0-98.0); Mean Platelet Volume 7.8 fL (7.4-10.4); Monocytes 7 % (0-10); Neutrophil 52 % (42-75); Platelet Count 257 thou/uL (130-400); RBC Distribution Width 13.5 % (11.5-14.5); Red Blood Cell (RBC) Count 3.82 mill/uL (4.20-5.40); White Blood Cell (WBC) Count 6.1 thou/uL (4.8-10.8)
[2018-06-06] MEDS: Enoxaparin Sodium 40 MG/0.4 ML SYRINGE SC SCH (08:51)
[2018-06-06] MEDS: Saccharomyces boulardii 250 MG CAP PO SCH (08:51)
[2018-06-06] MEDS: Famotidine 20 MG TAB PO SCH (08:51)
--- NOTE | 2018-06-06 09:53 | PDOC.PN ---
- Subjective Encounter Start Date: 06/06/18 Encounter Start Time: 07:50 pt has high fever today, no abdominal pain - Objective Resuscitation Status - Order Detail: 06/04/18 13:07 Resuscitation Status Routine Resuscitation Status: FULL: Full Resuscitation MAR Reviewed: Yes Vital Signs & Weight: Vital Signs (12 hours) Temp Pulse Resp BP Pulse Ox 06/06/18 08:54 99 06/06/18 07:27 98.1 F 60 16 138/76 99 06/06/18 03:16 102.0 F H Weight Weight 158 lb 11.725 oz I&O: 06/05/18 06/06/18 06/07/18 06:59 06:59 06:59 Intake Total 360 2800 Balance 360 2800 Result Diagrams: 06/06/18 06:56 06/06/18 06:56 Phys Exam - Physical Examination Constitutional: NAD HEENT: PERRLA, moist MMs, sclera anicteric Neck: no JVD, supple Respiratory: no wheezing, no rales, no rhonchi Cardiovascular: RRR, no significant murmur, no rub Gastrointestinal: soft, non-tender, no distention, positive bowel sounds Musculoskeletal: no edema, pulses present Neurological: non-focal, normal sensation Lymphatic: no nodes Psychiatric: normal affect, A&O x 3 Skin: no rash, normal turgor Dx/Plan (1) UTI (urinary tract infection) Status: Acute (2) Abnormal LFTs Code(s): R94.5 - ABNORMAL RESULTS OF LIVER FUNCTION STUDIES Status: Acute (3) Dehydration Code(s): E86.0 - DEHYDRATION Status: Acute (4) Hyponatremia Code(s): E87.1 - HYPO-OSMOLALITY AND HYPONATREMIA Status: Acute (5) Hypertension Code(s): I10 - ESSENTIAL (PRIMARY) HYPERTENSION Status: Chronic (6) Obesity (BMI 30.0-34.9) Code(s): E66.9 - OBESITY, UNSPECIFIED Status: Chronic - Plan cont current plan of care, continue antibiotics * will consult ID * continue rocephin * add levaquin * DC IVF * medication reviewed as below * symptomatic treatment * repeat labs tomorrow. Review of Systems - Review of Systems Constitutional: fever. negative: chills, sweats, weakness, malaise, other ENT: negative: Ear Pain, Ear Discharge, Nose Pain, Nose Discharge, Nose Congestion, Mouth Pain, Mouth Swelling, Throat Pain, Throat Swelling, Other Respiratory: negative: Cough, Dry, Shortness of Breath, Hemoptysis, SOB with Excertion, Pleuritic Pain, Sputum, Wheezing Cardiovascular: negative: chest pain, palpitations, orthopnea, paroxysmal nocturnal dyspnea, edema, light headedness, other Gastrointestinal: negative: Nausea, Vomiting, Abdominal Pain, Diarrhea, Constipation, Melena, Hematochezia, Other Genitourinary: negative: Dysuria, Frequency, Incontinence, Hematuria, Retention , Other Musculoskeletal: negative: Neck Pain, Shoulder Pain, Arm Pain, Back Pain, Hand Pain, Leg Pain, Foot Pain, Other Skin: negative: Rash, Lesions, Yuri, Bruising, Other - Medications/Allergies Allergies/Adverse Reactions: Allergies Allergy/AdvReac Type Severity Reaction Status Date / Time diphenhydramine HCl Allergy Verified 05/29/14 14:59 [From Benadryl] pseudoephedrine HCl Allergy Verified 05/29/14 14:59 [From Sudafed] tramadol Allergy Verified 06/04/18 14:20 Medications: Current Medications Acetaminophen (Tylenol) 650 mg PO Q4H PRN PRN Reason: Headache/Fever/Mild Pain (1-3) Last Admin: 06/06/18 03:12 Dose: 650 mg Hydrocodone Bitart/Acetaminophen ([place] 5/325) 1 tab PO Q4H PRN PRN Reason: Moderate Pain (4-6) Artificial Tears (Tears Renewed 15ml Bottle) 2 drop EA EYE PRN PRN PRN Reason: Dry Eyes Bisacodyl (Dulcolax) 10 mg [place] DAILYPRN PRN PRN Reason: Constipation Bisacodyl (Dulcolax) 10 mg PO DAILYPRN PRN PRN Reason: Constipation Calcium Carbonate (Tums) 1,000 mg PO Q4H PRN PRN Reason: Heartburn or Indigestion Enoxaparin Sodium (Lovenox) 40 mg SC 0900 [facility] Last Admin: 06/06/18 08:51 Dose: Not Given Famotidine (Pepcid) 20 mg PO DAILY [facility] Last Admin: 06/06/18 08:51 Dose: 20 mg Guaifenesin (Robitussin Sf) 200 mg PO Q4H PRN PRN Reason: Cough Hydralazine HCl (Apresoline) 10 mg SLOW IVP Q4H PRN PRN Reason: SBP > 180 and HR < 70 Ceftriaxone Sodium 1 gm/ (Sodium Chloride) 100 mls @ 200 mls/hr IVPB Q24HR [facility] Last Admin: 06/05/18 14:15 Dose: 100 mls Levofloxacin 750 mg/ Device 150 mls @ 100 mls/hr IVPB Q24HR [facility] Loperamide HCl (Imodium) 2 mg PO PRN PRN PRN Reason: Diarrhea/Loose Stools Mineral Oil/White Petrolatum (Eucerin Cream) 0 gm TOP BIDPRN PRN PRN Reason: Dry Skin Ondansetron HCl (Zofran Odt) 4 mg PO Q6H PRN PRN Reason: Nausea/Vomiting Ondansetron HCl (Zofran) 4 mg IVP Q6H PRN PRN Reason: Nausea/Vomiting Saccharomyces Boulardii (Florastor) 250 mg PO DAILY [facility] Last Admin: 06/06/18 08:51 Dose: 250 mg Senna/Docusate Sodium (Senokot S) 2 tab PO BID PRN PRN Reason: Constipation Sodium Chloride ([place] Nasal [place] 0.65%) 0 ml EA NARE QIDPRN PRN PRN Reason: Nasal Congestion Sodium Chloride (Flush - Normal Saline) 10 ml IVF Q12HR ELINA Sodium Chloride (Flush - Normal Saline) 10 ml IVF PRN PRN PRN Reason: Saline Flush Throat Lozenges (Cepastat Lozenges) 1 davion PO Q2H PRN PRN Reason: Sore Throat Zolpidem Tartrate (Ambien) 5 mg PO HSPRN PRN PRN Reason: Insomnia
[2018-06-06] MEDS: cefTRIAXone\\ROCEPHIN 1 GM in Sodium Chloride 0.9% 100 ML IVPB SCH (15:10)
[2018-06-06 16:51] LABS: HIV (1/2) Antibody/Antigen Non-Reactive (NonReactive); HIV 1/2 INDEX 0.31 S/CO (<1.00)
[2018-06-06] MEDS: HYDROcodone/Acetaminophen 5/325 mg Tablet PO PRN (21:14)
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
[2018-06-06] MEDS: Zolpidem Tartrate 5 MG TAB PO PRN (23:49)
[2018-06-07 07:24] LABS: #Eosinphils 0.2 thou/uL (0.0-0.7); #Lymphocytes 1.9 thou/uL (1.20-3.40); #Monocytes 0.8 thou/uL (0.11-0.59); #Neutrophils 5.2 thou/uL (1.40-6.50); %Eosinophils 2.6 % (0.0-10.0); %Lymphocytes 23.2 % (21.0-51.0); %Monocytes 9.8 % (0.0-10.0); %Neutrophils 64.4 % (42.0-75.0); Hemoglobin 11.8 g/dL (12.0-16.0); Mean Corpuscular Hemoglobin 30.4 pg (27.0-31.0); Mean Corpuscular Volume 92.1 fL (78.0-98.0); Mean Platelet Volume 7.6 fL (7.4-10.4); Platelet Count 298 thou/uL (130-400); RBC Distribution Width 13.9 % (11.5-14.5); Red Blood Cell (RBC) Count 3.87 mill/uL (4.20-5.40); White Blood Cell (WBC) Count 8.1 thou/uL (4.8-10.8)
[2018-06-07 07:43] LABS: ALT (SGPT) 218 U/L (8-55); AST (SGOT) 150 U/L (5-34); Albumin 3.2 g/dL (3.5-5.0); Alkaline Phosphatase 287 U/L (40-150); Anion Gap 12 mmol/L (10-20); BUN (Urea Nitrogen) 7 mg/dL (7.0-18.7); Bilirubin, Total 0.7 mg/dL (0.2-1.2); Calc. Creatinine Clearance 87 mL/min (70-130); Calcium 9.1 mg/dL (7.8-10.44); Carbon Dioxide 24 mmol/L (22-29); Chloride 104 mmol/L (98-107); Estimated GFR-MDRD 82; Globulin 3.5 g/dL (2.4-3.5); Glucose 111 mg/dL (70-105); Potassium 3.9 mmol/L (3.5-5.1); Protein, Total 6.7 g/dL (6.0-8.3); Sodium 136 mmol/L (136-145)
[2018-06-07] MEDS: Enoxaparin Sodium 40 MG/0.4 ML SYRINGE SC SCH (08:09)
[2018-06-07] MEDS: Famotidine 20 MG TAB PO SCH (08:12)
[2018-06-07] MEDS: Saccharomyces boulardii 250 MG CAP PO SCH (08:12)
[2018-06-07] MEDS: HYDROcodone/Acetaminophen 5/325 mg Tablet PO PRN ×3 (08:15→21:53)
[2018-06-07] MEDS: Acetaminophen 325 MG TAB PO PRN (08:15)
--- NOTE | 2018-06-07 09:57 | PDOC.PN ---
- Subjective Encounter Start Date: 06/07/18 Encounter Start Time: 08:00 Patient seen and examined. No new complaints. No overnight events has low grade fever - Objective Resuscitation Status - Order Detail: 06/04/18 13:07 Resuscitation Status Routine Resuscitation Status: FULL: Full Resuscitation MAR Reviewed: Yes Vital Signs & Weight: Vital Signs (12 hours) Temp Pulse Resp BP Pulse Ox 06/07/18 08:00 99.0 F 73 16 178/103 H 97 06/07/18 04:11 97.5 F L 65 18 165/93 H 99 06/06/18 23:53 97.8 F 65 18 137/78 98 Weight Weight 158 lb 11.725 oz I&O: 06/06/18 06/07/18 06/08/18 06:59 06:59 06:59 Intake Total 2800 800 Balance 2800 800 Result Diagrams: 06/07/18 07:07 06/07/18 07:07 Phys Exam - Physical Examination Constitutional: NAD HEENT: PERRLA, moist MMs, sclera anicteric Neck: no JVD, supple Respiratory: no wheezing, no rales, no rhonchi Cardiovascular: RRR, no significant murmur, no rub Gastrointestinal: soft, non-tender, no distention, positive bowel sounds Musculoskeletal: no edema, pulses present Neurological: non-focal, normal sensation, moves all 4 limbs Lymphatic: no nodes Psychiatric: normal affect, A&O x 3 Skin: no rash, normal turgor Dx/Plan (1) UTI (urinary tract infection) Status: Acute (2) Abnormal LFTs Code(s): R94.5 - ABNORMAL RESULTS OF LIVER FUNCTION STUDIES Status: Acute (3) Dehydration Code(s): E86.0 - DEHYDRATION Status: Acute (4) Hyponatremia Code(s): E87.1 - HYPO-OSMOLALITY AND HYPONATREMIA Status: Acute (5) Hypertension Code(s): I10 - ESSENTIAL (PRIMARY) HYPERTENSION Status: Chronic (6) Obesity (BMI 30.0-34.9) Code(s): E66.9 - OBESITY, UNSPECIFIED Status: Chronic - Plan cont current plan of care, continue antibiotics * continue rocephin and levaquin * ambulate as tolerated * if afebrile, then will consider discharge in next 24-48 hours * medication reviewed as below * symptomatic treatment * ID recommendation noted. Review of Systems - Review of Systems ENT: negative: Ear Pain, Ear Discharge, Nose Pain, Nose Discharge, Nose Congestion, Mouth Pain, Mouth Swelling, Throat Pain, Throat Swelling, Other Respiratory: negative: Cough, Dry, Shortness of Breath, Hemoptysis, SOB with Excertion, Pleuritic Pain, Sputum, Wheezing Cardiovascular: negative: chest pain, palpitations, orthopnea, paroxysmal nocturnal dyspnea, edema, light headedness, other Gastrointestinal: negative: Nausea, Vomiting, Abdominal Pain, Diarrhea, Constipation, Melena, Hematochezia, Other Genitourinary: negative: Dysuria, Frequency, Incontinence, Hematuria, Retention , Other Musculoskeletal: negative: Neck Pain, Shoulder Pain, Arm Pain, Back Pain, Hand Pain, Leg Pain, Foot Pain, Other Skin: negative: Rash, Lesions, Yuri, Bruising, Other - Medications/Allergies Allergies/Adverse Reactions: Allergies Allergy/AdvReac Type Severity Reaction Status Date / Time diphenhydramine HCl Allergy Verified 05/29/14 14:59 [From Benadryl] pseudoephedrine HCl Allergy Verified 05/29/14 14:59 [From Sudafed] tramadol Allergy Verified 06/04/18 14:20 Medications: Current Medications Acetaminophen (Tylenol) 650 mg PO Q4H PRN PRN Reason: Headache/Fever/Mild Pain (1-3) Last Admin: 06/07/18 08:15 Dose: 650 mg Hydrocodone Bitart/Acetaminophen ([place] 5/325) 1 tab PO Q4H PRN PRN Reason: Moderate Pain (4-6) Last Admin: 06/07/18 08:15 Dose: 1 tab Artificial Tears (Tears Renewed 15ml Bottle) 2 drop EA EYE PRN PRN PRN Reason: Dry Eyes Bisacodyl (Dulcolax) 10 mg HI DAILYPRN PRN PRN Reason: Constipation Bisacodyl (Dulcolax) 10 mg PO DAILYPRN PRN PRN Reason: Constipation Calcium Carbonate (Tums) 1,000 mg PO Q4H PRN PRN Reason: Heartburn or Indigestion Enoxaparin Sodium (Lovenox) 40 mg SC 0900 [facility] Last Admin: 06/07/18 08:09 Dose: Not Given Famotidine (Pepcid) 20 mg PO DAILY [facility] Last Admin: 06/07/18 08:12 Dose: 20 mg Guaifenesin (Robitussin Sf) 200 mg PO Q4H PRN PRN Reason: Cough Hydralazine HCl (Apresoline) 10 mg SLOW IVP Q4H PRN PRN Reason: SBP > 180 and HR < 70 Ceftriaxone Sodium 1 gm/ (Sodium Chloride) 100 mls @ 200 mls/hr IVPB Q24HR [facility] Last Admin: 06/06/18 15:10 Dose: 100 mls Levofloxacin 750 mg/ Device 150 mls @ 100 mls/hr IVPB Q24HR [facility] Last Admin: 06/06/18 11:00 Dose: 150 mls Loperamide HCl (Imodium) 2 mg PO PRN PRN PRN Reason: Diarrhea/Loose Stools Mineral Oil/White Petrolatum (Eucerin Cream) 0 gm TOP BIDPRN PRN PRN Reason: Dry Skin Ondansetron HCl (Zofran Odt) 4 mg PO Q6H PRN PRN Reason: Nausea/Vomiting Ondansetron HCl (Zofran) 4 mg IVP Q6H PRN PRN Reason: Nausea/Vomiting Saccharomyces Boulardii (Florastor) 250 mg PO DAILY [facility] Last Admin: 06/07/18 08:12 Dose: 250 mg Senna/Docusate Sodium (Senokot S) 2 tab PO BID PRN PRN Reason: Constipation Last Admin: 06/06/18 21:14 Dose: 2 tab Sodium Chloride (Leith Nasal Crapo 0.65%) 0 ml EA NARE QIDPRN PRN PRN Reason: Nasal Congestion Sodium Chloride (Flush - Normal Saline) 10 ml IVF Q12HR [facility] Last Admin: 06/07/18 08:12 Dose: 10 ml Sodium Chloride (Flush - Normal Saline) 10 ml IVF PRN PRN PRN Reason: Saline Flush Throat Lozenges (Cepastat Lozenges) 1 davion PO Q2H PRN PRN Reason: Sore Throat Zolpidem Tartrate (Ambien) 5 mg PO HSPRN PRN PRN Reason: Insomnia Last Admin: 06/06/18 23:49 Dose: 5 mg
[2018-06-07 12:34] LABS: Syphilis Antibody INDETERMINATE (Nonreactive); Syphilis Titer Non-Reactive (Negative)
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
[2018-06-07 14:26] LABS: ANA Symphony (Qualitative) Negative (Negative); ANA Symphony (Quantitative) 0.1 Ratio (< 0.7 Negative); dsDNA IgG Antibody 0.9 IU/mL (<10 Negative)
[2018-06-07] MEDS: cefTRIAXone\\ROCEPHIN 1 GM in Sodium Chloride 0.9% 100 ML IVPB SCH (16:29)
[2018-06-07] MEDS: Zolpidem Tartrate 5 MG TAB PO PRN (23:24)
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
[2018-06-08] MEDS: HYDROcodone/Acetaminophen 5/325 mg Tablet PO PRN (06:13)
[2018-06-08 07:48] VITALS: BP 156/99; TEMP 98
[2018-06-08] MEDS: Famotidine 20 MG TAB PO SCH (09:06)
[2018-06-08] MEDS: Saccharomyces boulardii 250 MG CAP PO SCH (09:06)
[2018-06-08] MEDS: Enoxaparin Sodium 40 MG/0.4 ML SYRINGE SC SCH (09:06)
--- NOTE | 2018-06-08 12:29 | DIS ---
DATE OF ADMISSION: 06/04/2018 DATE OF DISCHARGE: 06/08/2018 [facility] DISCHARGE DISPOSITION: Home. PRIMARY DISCHARGE DIAGNOSES: 1. Urinary tract infection. 2. Abnormal LFT. 3. Dehydration. 4. Hyponatremia. 5. Thymus cyst. SECONDARY DISCHARGE DIAGNOSES: Hypertension, obesity. PRIMARY PROCEDURE/OPERATION: None. RADIOLOGICAL INVESTIGATION: Abdomen ultrasound normal. Chest, abdomen, and pelvis CT scan showed thymus cyst. SIGNIFICANT LABORATORY DATA: WBC 8.1, hemoglobin 11.8, platelet 298. Sodium 136, potassium 3.9, creatinine 0.88. AST 150, ALT 218. Alkaline phosphatase 287, albumin 3.2. TSH 1.49. Urinalysis, suggestive of UTI. VICKY negative. Anti-dsDNA negative. Hepatitis profile negative. HIV negative. DISCHARGE MEDICATIONS: 1. Atenolol 50 mg daily. 2. Clonidine 0.2 mg at bedtime. 3. Hydrochlorothiazide 12.5 mg daily. 4. Cipro 500 mg twice daily for 7 days. 5. Doxycycline 100 mg twice daily for 7 days. 6. Florastor 250 mg p.o. daily for 7 days. CONTRAINDICATION: None. CODE STATUS: Full code. INPATIENT JOURNEYMAN PRESSMAN: Dr. Pritchett was consulted while in the hospital. ALLERGIES: BENADRYL, PSEUDOEPHEDRINE, AND TRAMADOL. DISCHARGE PLAN: Post hospital, the patient will follow up with primary care physician and Dr. Pritchett as instructed. HOSPITAL COURSE: A 52-year-old female who was admitted by de on June 04, 2018. The patient was having recurrent fever. She was having poor appetite. She was clinically appeared dehydrated. She had urinalysis, which was suggestive of UTI. She also had abnormal LFT and that is why abdominal ultrasound was done, which was unremarkable. We also did CT chest, abdomen, and pelvis which showed thymus cyst. We advised this patient to follow up with the airborne sensor specialist for possible evaluation with liver biopsy if needed. We also advised this patient to get repeat CT chest for thymus cyst followup after 3 to 6 months. The patient was treated with Rocephin, Levaquin while in the hospital. Dr. Pritchett was consulted while in the hospital. Autoimmune workup was negative. This patient is doing very well while in the hospital. She is afebrile and hemodynamically stable. The patient was also given IV fluid and her dehydration was corrected. I have seen and examined this patient at bedside. REVIEW OF SYSTEMS: All review of systems reviewed with her and negative. PHYSICAL EXAMINATION: VITAL SIGNS: Currently, temperature 98.0, pulse 70, respiratory rate 16, saturation 99%, blood pressure 155/99. Weight 158 pounds. GENERAL: The patient is currently alert, awake. No obvious acute distress. HEENT: Head; normocephalic, atraumatic. Eyes; pupils are round and reactive to light. Extraocular muscle intact. ENT; oropharynx within normal limits. Moist mucous membranes. No oral lesion. No pharyngeal erythema. No exudate. NECK: Supple. No JVD. No thyromegaly. No carotid bruit. LUNGS: Clear to auscultation without any rhonchi or rales. CARDIAC: S1 and S2, regular without any murmur. ABDOMEN: Soft and benign. EXTREMITIES: No edema. NEUROLOGIC: Nonfocal examination. Overall, the patient is medically stable for discharge today. Job ID: [id number]
== END 2018-06-08 09:56 | disposition home or self-care (01) | DRG 690 ==
LOC: ERS 08:57 → T4-B 13:31
PROVIDERS: ADMIT Internal Medicine; ATTEND Internal Medicine
DX: N39.0 Urinary tract infection, site not specified (principal); E87.1 Hypo-osmolality and hyponatremia; E87.8 Other disorders of electrolyte and fluid balance, not elsewhere classified; E32.8 Other diseases of thymus; R79.89 Other specified abnormal findings of blood chemistry; E86.0 Dehydration; I10 Essential (primary) hypertension; F41.9 Anxiety disorder, unspecified; F32.9 Major depressive disorder, single episode, unspecified; E66.9 Obesity, unspecified; Z68.30 Body mass index [BMI] 30.0-30.9, adult; Z87.891 Personal history of nicotine dependence; Z88.5 Allergy status to narcotic agent; Z88.8 Allergy status to other drugs, medicaments and biological substances; Z79.899 Other long term (current) drug therapy
CPT/HCPCS: 36415; 71260; 74177; 76705; 80053; 80074; 81003; 81015; 83690; 84443; 85025; 86038; 86225; 86593; 86780; 87040; 87389; 90471; 90686; 93005; 96361; 96374; G0008; J0696; J1650; J1956; J2405; J7050

== ENCOUNTER 2019-03-27 05:29 | Emergency (ER) | payer SELFPAY ==
--- NOTE | 2019-03-27 07:49 | CT ---
PRELIMINARY REPORT/[facility]/EMERGENCY AFTER HOURS PROCEDURE: PROCEDURE INFORMATION: Exam: CT Head Without Contrast Exam date and time: 03/27/2019 6:33 AM Clinical history: 53 years old, female; Pain; Patient HX: Headache - states has high blood pressure - not making appointments at clinic - out of medication TECHNIQUE: Imaging protocol: Computed tomography of the head without contrast. COMPARISON: No relevant prior studies available. FINDINGS: Brain: Normal. No hemorrhage. Unremarkable white matter. No mass effect. Ventricles: Normal. No ventriculomegaly. Bones/joints: Normal. No fracture. Sinuses: Visualized sinuses are unremarkable. No fluid levels. Mastoid air cells: Visualized mastoid air cells are well aerated. Soft tissues: Unremarkable. IMPRESSION: Unremarkable examination. Thank you for allowing us to participate in the care of your patient. Dictated and Authenticated by: Joshua Kirk MD 03/27/2019 7:00 AM Central Time ([place] & [place]) FINAL REPORT EMERGENT AFTER HOURS CT OF THE BRAIN WITHOUT CONTRAST: FINDINGS/IMPRESSION: I agree with the findings and impression given in the preliminary report per [facility] physician. No kinsey dence of acute intracranial abnormality. POS: [facility]
== END 2019-03-27 07:12 | disposition home or self-care (01) ==
LOC: ERS 05:29
DX: R51 Headache (principal); I10 Essential (primary) hypertension; M19.90 Unspecified osteoarthritis, unspecified site; F41.9 Anxiety disorder, unspecified; F17.210 Nicotine dependence, cigarettes, uncomplicated; Z79.899 Other long term (current) drug therapy
CPT/HCPCS: 70450

== ENCOUNTER 2019-05-15 13:30 | Emergency (ER) | payer SELFPAY | END 2019-05-15 16:52 | disposition home or self-care (01) | LOC: ERS 13:30 | DX: K64.4 Residual hemorrhoidal skin tags (principal); I10 Essential (primary) hypertension; M19.90 Unspecified osteoarthritis, unspecified site; F41.9 Anxiety disorder, unspecified; F17.210 Nicotine dependence, cigarettes, uncomplicated; Z79.899 Other long term (current) drug therapy | CPT/HCPCS: 99283 ==

== ENCOUNTER 2020-08-28 17:05 | Emergency (ER) | payer OTHER, SELFPAY | END 2020-08-28 17:44 | disposition home or self-care (01) | LOC: ERS 17:05 | DX: R05 Cough (principal); R43.0 Anosmia; Z20.822 Contact with and (suspected) exposure to COVID-19; I10 Essential (primary) hypertension; F17.210 Nicotine dependence, cigarettes, uncomplicated; Z79.899 Other long term (current) drug therapy | CPT/HCPCS: 87635; 99283; U0003; U0005 ==

== ENCOUNTER 2023-06-07 19:59 | Emergency (ER) | payer SELFPAY ==
[2023-06-07 22:53] LABS: SARS-CoV-2 NAA Rapid Test Not Detected (NotDetected)
[2023-06-07 22:57] LABS: #Basophils 0.1 thou/uL (0.0-0.2); #Eosinphils 0.3 thou/uL (0.0-0.7); #Monocytes 0.7 thou/uL (0.11-0.59); #Neutrophils 4.7 thou/uL (1.40-6.50); %Basophils 1.1 % (0.0-1.0); %Eosinophils 2.9 % (0.0-10.0); %Lymphocytes 38.2 % (21.0-51.0); %Monocytes 7.1 % (0.0-10.0); %Neutrophils 50.5 % (42.0-75.0); Hemoglobin 13.6 g/dL (12.0-16.0); Mean Corpuscular HGB CONC 32.4 g/dL (32.0-36.0); Mean Corpuscular Hemoglobin 29.4 pg (27.0-31.0); Mean Corpuscular Volume 90.7 fl (78.0-98.0); Mean Platelet Volume 9.6 fL (7.4-10.4); Platelet Count 247 10x3/uL (130-400); RBC Distribution Width 14.1 % (11.5-14.5); Red Blood Cell (RBC) Count 4.63 mill/uL (4.20-5.40); White Blood Cell (WBC) Count 9.2 10x3/uL (4.8-10.8)
[2023-06-07 23:22] LABS: ALT (SGPT) 32 U/L (8-55); AST (SGOT) 22 U/L (5-34); Albumin 4.1 g/dL (3.5-5.0); Alkaline Phosphatase 73 U/L (40-110); Anion Gap 12 mmol/L (10-20); BUN (Urea Nitrogen) 18 mg/dL (9.8-20.1); Bilirubin, Total Less than 0.2 mg/dL (0.2-1.2); Calc. Creatinine Clearance 0 mL/min (70-130); Calcium 9.6 mg/dL (7.8-10.44); Carbon Dioxide 22 mmol/L (22-29); Chloride 109 mmol/L (98-107); Estimated GFR 76; Globulin 3.4 g/dL (2.4-3.5); Glucose 109 mg/dL (70-105); Lipase 14 U/L (8-78); Potassium 4.1 mmol/L (3.5-5.1); Protein, Total 7.5 g/dL (6.0-8.3); Sodium 139 mmol/L (136-145)
== END 2023-06-08 00:28 | disposition home or self-care (01) ==
LOC: ERS 19:59
DX: B34.9 Viral infection, unspecified (principal); I10 Essential (primary) hypertension; F17.210 Nicotine dependence, cigarettes, uncomplicated; Z79.899 Other long term (current) drug therapy
CPT/HCPCS: 36415; 71045; 80053; 82140; 83690; 85025

== ENCOUNTER 2023-10-24 17:34 | Emergency (ER) | payer BC, SELFPAY ==
[~2023-10-24 17:34] MED LIST: Iopamidol-370 76% 500 ML MDV (1 ML CHARGE) ONE
[2023-10-24] MEDS ORDERED: Acetaminophen 500 MG TAB ONE (18:25)
[2023-10-24 19:06] LABS: #Basophils 0.09 10x3/uL (0.0-0.2); %Basophils 0.9 % (0.0-1.0); %Eosinophils 2.1 % (0.0-10.0); %Lymphocytes 26.4 % (21.0-51.0); %Monocytes 5.2 % (0.0-10.0); Hematocrit 40.4 % (36.0-47.0); Hemoglobin 13.4 g/dL (12.0-16.0); Mean Corpuscular HGB CONC 33.2 g/dL (32.0-36.0); Mean Corpuscular Hemoglobin 29.6 pg (27.0-31.0); Mean Corpuscular Volume 89.4 fL (78.0-98.0); Mean Platelet Volume 10.2 fL (7.4-10.4); Platelet Count 237 10x3/uL (130-400); Red Blood Cell (RBC) Count 4.52 mill/uL (4.20-5.40)
[2023-10-24 19:06] LABS: ALT (SGPT) 34 U/L (8-55); AST (SGOT) 24 U/L (5-34); Albumin 3.9 g/dL (3.5-5.0); Alkaline Phosphatase 79 U/L (40-110); Anion Gap 13 mmol/L (10-20); BUN (Urea Nitrogen) 16 mg/dL (9.8-20.1); Bilirubin, Total 0.3 mg/dL (0.2-1.2); Calc. Creatinine Clearance 0 mL/min (70-130); Calcium 10.2 mg/dL (7.8-10.44); Carbon Dioxide 24 mmol/L (22-29); Chloride 108 mmol/L (98-107); Estimated GFR 60; Globulin 4.2 g/dL (2.4-3.5); Glucose 81 mg/dL (70-105); Lipase 32 U/L (8-78); Potassium 3.7 mmol/L (3.5-5.1); Protein, Total 8.1 g/dL (6.0-8.3); Sodium 141 mmol/L (136-145)
[2023-10-24 19:07] LABS: Acetaminophen Less than 10 mcg/mL (10.0-30.0); Alcohol Less than 10.0 mg/dL (Less than 10); Salicylate Less than 8.0 mg/dL (15.0-30.0)
[2023-10-24 19:08] LABS: Bilirubin Negative (Negative); Blood, Urine Negative (Negative); Glucose, Urine (Dipstick) Negative (Negative); Ketone, Urine Negative (Negative); Leukocyte Negative (Negative); Nitrite Negative (Negative); Protein, Urine (Dipstick) Negative (Neg-Trace); Specific Gravity, Urine 1.025 (1.005-1.030); Urobilinogen 0.2 mg/dL (Less than 2); pH, Urine 5.5 (5.0-9.0)
[2023-10-24 19:10] LABS: Bacteria/HPF None Seen HPF (None Seen); CAUTI Indications for Culture Acute Hematuria; RBC/HPF 0-3 HPF (0-3); Squamous Epithelial 0-3 HPF (0-3); WBC/HPF 0-3 HPF (0-3)
[2023-10-24 19:15] LABS: Clarity Clear (Clear)
[2023-10-24 19:18] LABS: Urine Culture Reflex No No
[2023-10-24 19:19] LABS: Amphetamine Not Detected (NotDetected); Barbiturates Screen Not Detected (NotDetected); Benzodiazepine Screen Not Detected (NotDetected); Cocaine Metabolite Screen Not Detected (NotDetected); Methadone Not Detected (NotDetected); Methamphetamine Not Detected (NotDetected); Opiate Screen Detected (NotDetected); Oxycodone Screen Not Detected (NotDetected); Phencyclidine (PCP) Not Detected (NotDetected); THC/Cannabinoid Screen Detected (NotDetected); Tricyclic Screen Not Detected (NotDetected)
== END 2023-10-24 20:45 | disposition home or self-care (01) ==
LOC: ERS 17:34
DX: J01.00 Acute maxillary sinusitis, unspecified (principal); R10.32 Left lower quadrant pain; I10 Essential (primary) hypertension; F17.210 Nicotine dependence, cigarettes, uncomplicated; Z79.899 Other long term (current) drug therapy; Z55.0 Illiteracy and low-level literacy
CPT/HCPCS: 36415; 70491; 74177; 80053; 80306; 80307; 81001; 83690; 85025; Q9967

== ENCOUNTER 2024-03-06 15:47 | Emergency (ER) | payer SELFPAY | END 2024-03-06 18:21 | disposition home or self-care (01) | LOC: ERS 15:47 | DX: M25.511 Pain in right shoulder (principal) | CPT/HCPCS: 99283 ==

== ENCOUNTER 2024-03-11 20:48 | Emergency (ER) | payer SELFPAY ==
[2024-03-11] MEDS ORDERED: Morphine 4 MG/ML VIAL ONE (21:07)
[2024-03-11 21:19] LABS: Hematocrit 45.3 % (36.0-47.0); Hemoglobin 14.9 g/dL (12.0-16.0); Mean Corpuscular HGB CONC 32.9 g/dL (32.0-36.0); Mean Corpuscular Hemoglobin 29.2 pg (27.0-31.0); Mean Corpuscular Volume 88.8 fL (78.0-98.0); Mean Platelet Volume 9.8 fL (7.4-10.4); Platelet Count 312 10x3/uL (130-400); RBC Distribution Width 14.5 % (11.5-14.5)
[2024-03-11 21:27] LABS: Lipase 12 U/L (8-78)
[2024-03-11 21:29] LABS: Acetaminophen Less than 10 mcg/mL (Less than 10); Alcohol Less than 10.0 mg/dL (Less than 10); Salicylate Less than 8.0 mg/dL (Less than 8.0)
[2024-03-11 21:32] LABS: ALT (SGPT) 34 U/L (8-55); AST (SGOT) 25 U/L (5-34); Albumin 4.4 g/dL (3.5-5.0); Alkaline Phosphatase 94 U/L (40-110); Anion Gap 17 mmol/L (10-20); BUN (Urea Nitrogen) 21 mg/dL (9.8-20.1); Bilirubin, Total 0.2 mg/dL (0.2-1.2); Calc. Creatinine Clearance 0 mL/min (70-130); Calcium 10.2 mg/dL (7.8-10.44); Carbon Dioxide 24 mmol/L (22-29); Chloride 103 mmol/L (98-107); Estimated GFR 48; Globulin 3.9 g/dL (2.4-3.5); Glucose 152 mg/dL (70-105); Potassium 3.3 mmol/L (3.5-5.1); Protein, Total 8.3 g/dL (6.0-8.3); Sodium 141 mmol/L (136-145)
[2024-03-11 21:34] LABS: Troponin I Less than 0.010 ng/mL (< 0.028)
[2024-03-11 21:45] LABS: Anisocytosis SLIGHT = 6-15 cells HPF (0-5); Band 15 % (5-11); Eosinophils 1 % (0-10); Lymphocytes 9 % (21-51); Microcytosis SLIGHT = 6-15 cells HPF (0-5); Monocytes 8 % (0-10); Neutrophil 67 % (42-75); Platelet Adequacy Comment Platelets Decreased; Polychromasia SLIGHT = 2-3 cells HPF (0-2)
[2024-03-11 22:41] LABS: Amphetamine Not Detected (NotDetected); Barbiturates Screen Not Detected (NotDetected); Benzodiazepine Screen Not Detected (NotDetected); Bilirubin Negative (Negative); Blood, Urine Negative (Negative); CAUTI Indications for Culture Pelvic or flank pain; Clarity Clear (Clear); Cocaine Metabolite Screen Not Detected (NotDetected); Glucose, Urine (Dipstick) Normal (Negative); Ketone, Urine Negative (Negative); Leukocyte Negative Leu/uL (Negative); Methadone Not Detected (NotDetected); Methamphetamine Not Detected (NotDetected); Nitrite Negative (Negative); Opiate Screen Detected (NotDetected); Oxycodone Screen Not Detected (NotDetected); Phencyclidine (PCP) Not Detected (NotDetected); Protein, Urine (Dipstick) 50 mg/dL (Neg-Trace); RBC/HPF 0-3 HPF (0-3); Specific Gravity, Urine 1.025 (1.002-1.036); THC/Cannabinoid Screen Detected (NotDetected); Tricyclic Screen Not Detected (NotDetected); Urobilinogen Normal mg/dL (Less than 2)
[2024-03-11] MEDS ORDERED: Dicyclomine 20 MG/2 ML VIAL ONE (22:44)
[2024-03-11 22:53] LABS: Bacteria/HPF 1+ HPF (None Seen)
[2024-03-11 22:54] LABS: Urine Culture Reflex No No
== END 2024-03-11 23:11 | disposition home or self-care (01) ==
LOC: ERS 20:48
DX: K52.9 Noninfective gastroenteritis and colitis, unspecified (principal); F17.210 Nicotine dependence, cigarettes, uncomplicated; Z79.899 Other long term (current) drug therapy
CPT/HCPCS: 36415; 74176; 80053; 80306; 80307; 81001; 83690; 84484; 85025; 93005; 96372; 96374; J2272

== ENCOUNTER 2024-05-21 12:50 | Emergency (ER) | payer SELFPAY ==
[2024-05-21] MEDS ORDERED: Ketorolac Tromethamine 30 MG (1 mL) VIAL ONE (13:14)
== END 2024-05-21 13:31 | disposition home or self-care (01) ==
LOC: ERS 12:50
DX: M65.4 Radial styloid tenosynovitis [de Quervain] (principal); M79.645 Pain in left finger(s); E78.00 Pure hypercholesterolemia, unspecified; F17.210 Nicotine dependence, cigarettes, uncomplicated; I10 Essential (primary) hypertension; Z79.899 Other long term (current) drug therapy
CPT/HCPCS: 96372; 99283; J1885

== ENCOUNTER 2024-12-09 23:15 | Emergency (ER) | payer OTHER ==
[2024-12-10] MEDS ORDERED: Acetaminophen 500 MG TAB ONE (00:01)
[2024-12-10 00:20] LABS: #Eosinophils 0.39 10x3/uL (0.0-0.7); #Monocytes 0.58 10x3/uL (0.11-0.59); #Neutrophils 5.16 10x3/uL (1.40-6.50); %Eosinophils 3.8 % (0.0-10.0); %Monocytes 5.7 % (0.0-10.0); Hematocrit 38.4 % (36.0-47.0); Hemoglobin 12.8 g/dL (12.0-16.0); Mean Corpuscular HGB CONC 33.3 g/dL (32.0-36.0); Mean Corpuscular Hemoglobin 28.5 pg (27.0-31.0); Mean Corpuscular Volume 85.5 fL (78.0-98.0); Mean Platelet Volume 9.8 fL (7.4-10.4); Platelet Count 239 10x3/uL (130-400); RBC Distribution Width 14.1 % (11.5-14.5); Red Blood Cell (RBC) Count 4.49 mill/uL (4.20-5.40); White Blood Cell (WBC) Count 10.13 10x3/uL (4.8-10.8)
[2024-12-10 00:54] LABS: ALT (SGPT) 23 U/L (Less than 34); AST (SGOT) 23 U/L (11-34); Albumin 4.1 g/dL (3.1-4.5); Alkaline Phosphatase 71 U/L (40-110); Anion Gap 12 mmol/L (10-20); BUN (Urea Nitrogen) 17 mg/dL (9.8-20.1); Bilirubin, Total 0.2 mg/dL (0.3-1.2); Calc. Creatinine Clearance 0 mL/min (70-130); Calcium 9.6 mg/dL (7.8-10.44); Carbon Dioxide 23 mmol/L (22-29); Chloride 106 mmol/L (98-107); Estimated GFR 65; Globulin 3.4 g/dL (2.4-3.5); Glucose 127 mg/dL (70-105); Lipase 16 U/L (8-78); Protein, Total 7.5 g/dL (6.0-8.3); Sodium 137 mmol/L (136-145); Troponin I Less than 0.010 ng/mL (< 0.028)
== END 2024-12-10 01:34 | disposition home or self-care (01) ==
LOC: ERS 23:15
DX: M79.18 Myalgia, other site (principal); I10 Essential (primary) hypertension; E78.5 Hyperlipidemia, unspecified; F17.210 Nicotine dependence, cigarettes, uncomplicated; Z79.899 Other long term (current) drug therapy
CPT/HCPCS: 71045; 80053; 83690; 84484; 85025; 93005